=== PATIENT | male | born 1960 | race Caucasian/White ===

== ENCOUNTER 2019-12-22 08:16 | Emergency (ER) | payer SELFPAY ==
[~2019-12-22] VITALS: Ht 160 cm; Wt 66.2 kg
[2019-12-22 08:20] VITALS: BP 170/90
[2019-12-22] MEDS ORDERED: MORPHINE SULFATE 10 MG/ML VIAL IM STA (08:28)
[2019-12-22] MEDS ORDERED: LIDOCAINE/EPI 1% 1:100000 20 ML VIAL INJ STA (08:28)
--- NOTE | 2019-12-22 08:29 | NUR ---
59 year old male complains of lower back abscess x4 days. continous pressure pain. pt AOx4, breathing even and unlabored, skin warm and dry. Bed in lowest position, locked, bed rail upx1. PMH - denies allergies - NKA
[2019-12-22] MEDS ORDERED: ONDANSETRON 4 MG ODT PO ONE (08:30)
--- NOTE | 2019-12-22 08:33 | NUR ---
Dr. Martin at bedside with US.
[2019-12-22] MEDS ORDERED: LORazepam 1 MG TAB PO ONE (08:35)
[2019-12-22 10:00] VITALS: BP 135/86
--- NOTE | 2019-12-22 10:00 | NUR ---
Patient discharged with v/s stable. Written and verbal after care instructions given and explained. Patient alert, oriented and verbalized understanding of instructions. Ambulatory with steady gait. All questions addressed prior to discharge. ID band removed. Patient advised to follow up here in the ED in two days for a wound check. Rx of Bactrim DS 800mg-160mg and Tylenol 325mg given. Patient educated on indication of medication including possible reaction and side effects. Patient also provided with RX discount card to obtain prescriptions. Opportunity to ask questions provided and answered.
== END 2019-12-22 10:00 | disposition home or self-care (01) ==
LOC: MED 08:16
DX: L02.212 Cutaneous abscess of back [any part, except buttock and flank] (principal)
CPT/HCPCS: 10060; 96372; 99284; J2001; J2270; Q0162

== ENCOUNTER 2019-12-24 09:07 | Emergency (ER) | payer SELFPAY ==
[~2019-12-24] VITALS: Ht 162.6 cm; Wt 66.2 kg
[2019-12-24 09:12] VITALS: BP 175/86
--- NOTE | 2019-12-24 09:18 | NUR ---
PT AMB TO BED 3.
--- NOTE | 2019-12-24 09:37 | NUR ---
59 YEAR OLD MALE COMES TO ER FOR WOUND CHECK. PT WAS PREVIOUSLY HERE FOR ABSCESS ON LOWER BACK THAT WAS DRAINED/PACKED AND THAT HE WAS TOLD TO COME BACK TODAY. PT AOX4, BREATHING EVEN AND UNLABORED, SKIN WARM AND DRY. BED IN LOWEST POSITION, LOCKED, BED RAIL UPX1.
[2019-12-24] MEDS ORDERED: KETOROLAC 60 MG/2 ML VIAL IM ONE (09:45)
[2019-12-24 09:58] VITALS: BP 175/86
--- NOTE | 2019-12-24 09:59 | NUR ---
Patient discharged with v/s stable. Written and verbal after care instructions about wound check given and explained. Patient alert, oriented and verbalized understanding of instructions. Ambulatory with steady gait. All questions addressed prior to discharge. ID band removed. Patient advised to follow up with PMD. Rx of tramadol, motrin given. Patient educated on indication of medication including possible reaction and side effects. Opportunity to ask questions provided and answered.
== END 2019-12-24 09:59 | disposition home or self-care (01) ==
LOC: MED 09:07
DX: L02.212 Cutaneous abscess of back [any part, except buttock and flank] (principal); R03.0 Elevated blood-pressure reading, without diagnosis of hypertension
CPT/HCPCS: 96372; 99283; J1885